=== PATIENT | female | born 1965 | race Hispanic/Latino ===

== ENCOUNTER 2017-07-19 18:38 | Emergency (ER) | payer BC ==
[2017-07-19 18:56] VITALS: O2SAT 98; BMI 32.3
--- NOTE | 2017-07-19 19:23 | ED PDOC ---
Arrival/HPI - General Chief Complaint: Abnormal Skin Integrity Time Seen by Provider: 07/19/17 19:15 Historian: Patient EM Caveat: Acuity of Condition - History of Present Illness Narrative History of Present Illness (Text): 07/19/17 19:19 Pt is a 51 yr old female who presents with a 1.5 cm laceration to her left jeff aspect of the second PIP jt pad approximately one hour ago. Pt says she was cutting an avocado when the knife slipped and cut her hand cleanly. When she ran her hand under running cold water, she felt a sharp increase in pain and knew that it was a deep cut. denies loss of sensation or motor function to the left hand. Last tetanus booster greater than 10 yrs ago. Time/Duration: Prior to Arrival Symptom Onset: Sudden Symptom Course: Unchanged Quality: Aching Severity Level: 5, 7 Activities at Onset: Rest Context: Work Past Medical History - Provider Review Nursing Documentation Reviewed: Yes - Travel History Have you recently traveled outside [place] w/in the past 3 mons?: No - Cardiac Hx Cardiac Disorders: No - Pulmonary Hx Respiratory Disorders: No - Neurological Hx Neurological Disorder: Yes Hx Headaches: Yes - HEENT Hx HEENT Disorder: No - Renal Hx Renal Disorder: No - Endocrine/Metabolic Hx Endocrine Disorders: Yes Hx Hypothyroidism: Yes Hx Systemic Lupus Erythematosus: Yes - Hematological/Oncological Hx Blood Disorders: Yes - Integumentary Hx Dermatological Disorder: Yes Other/Comment: rosea - Musculoskeletal/Rheumatological Hx Musculoskeletal Disorders: No - Gastrointestinal Hx Gastrointestinal Disorders: No - Genitourinary/Gynecological Hx Genitourinary Disorders: No - Psychiatric Hx Psychophysiologic Disorder: Yes Hx Depression: Yes Hx Substance Use: No - Surgical History Hx Section: Yes - Anesthesia Hx Anesthesia: Yes Hx Anesthesia Reactions: No Hx Malignant Hyperthermia: No Family/Social History - Physician Review Nursing Documentation Reviewed: Yes Family/Social History: Unknown Family HX Smoking Status: socially Hx Alcohol Use: Yes Frequency of alcohol use: Socially Hx Substance Use: No Allergies/Home Meds Allergies/Adverse Reactions: Allergies Penicillins Allergy (Verified 07/19/17 18:56) RASH Home Medications: Home Meds Medication Instructions Recorded Confirmed Levothyroxine [Synthroid] 200 mcg PO DAILY 07/19/17 07/19/17 Paroxetine HCl [Paxil] 20 mg PO DAILY 07/19/17 07/19/17 Pediatric Multivit No.153/D3/K 1 tab PO DAILY 07/19/17 07/19/17 [Abdek Multivitamin Chew Tab] Review of Systems - Review of Systems Constitutional: Normal Eyes: Normal ENT: Normal Respiratory: Normal Cardiovascular: Normal Gastrointestinal: Normal Genitourinary Female: Normal Musculoskeletal: Normal Skin: Laceration (left hand on the palm ) Neurological: Normal Endocrine: Normal Hemo/Lymphatic: Normal Psychiatric: Normal Physical Exam Vital Signs Reviewed: Yes Vital Signs Temp Pulse Resp BP Pulse Ox 07/19/17 21:05 98 F 75 18 135/72 98 07/19/17 18:48 98.9 F 86 17 139/82 98 Temperature: Afebrile Blood Pressure: Normal Pulse: Regular Respiratory Rate: Normal Appearance: Positive for: Well-Appearing, Non-Toxic, Comfortable Pain Distress: None Mental Status: Positive for: Alert and Oriented X 3 - Systems Exam Head: Present: Atraumatic, Normocephalic Pupils: Present: PERRL Extroacular Muscles: Present: EOMI Conjunctiva: Present: Normal Mouth: Present: Moist Mucous Membranes Neck: Present: Normal Range of Motion Respiratory/Chest: Present: Clear to Auscultation, Good Air Exchange. No: Respiratory Distress, Accessory Muscle Use Cardiovascular: Present: Regular Rate and Rhythm, Normal S1, S2. No: Murmurs Abdomen: No: Tenderness, Distention, Peritoneal Signs Back: Present: Normal Inspection Upper Extremity: Present: Normal Inspection, Normal ROM, NORMAL PULSES, Neurovascularly Intact. No: Cyanosis, Edema Lower Extremity: Present: Normal Inspection. No: Edema Neurological: Present: GCS=15, CN II-XII Intact, Speech Normal, Motor Func Grossly Intact, Normal Sensory Function, Normal Cerebellar Funct Skin: Present: Warm, Dry, Normal Color, Laceration (Left jeff aspect over the 2nd PIP jt, approx 1.5 cm in length). No: Rashes Psychiatric: Present: Alert, Oriented x 3, Normal Insight, Normal Concentration Medical Decision Making ED Course and Treatment: 07/19/17 19:25 Impression Pt is a 51 yr old female who presents with a 1.5 cm laceration to her left jeff aspect of the second PIP jt pad approximately one hour ago. Plan Order Tetanus booster lac repair Progress note Wound was irrigated well, infiltrated with lidocaine 1% Laceration repair using 5.0 Nylon x 2 sutures Pt tolerated the procedure well and was instructed to keep wound clean and dry Return to have sutures removed in 7-10 days tetanus booster given 07/19/17 20:39 - Medication Orders Current Medication Orders: Discontinued Medications Tetanus/Reduced Diphtheria/Acell Pertussis (Boostrix Vaccine Inj) 0.5 ml IM .ONCE ONE Stop: 07/19/17 19:27 Last Admin: 07/19/17 20:58 Dose: 0.5 ml Immunization Registry Document 07/19/17 20:58 [place] (Rec: 07/19/17 20:58 [place] [id number]) Immunization Registry Consent Date 07/19/17 - Procedure PROCEDURE NOTE (Text): Performed by the emergency provider Location: Left jeff surface of the 2nd PIP jt Length: 1.5 cm Description: "clean wound edges","no foreign bodies" Distal CMS: ~Normal.~ No deficits.~ Neurovascularly intact. Anesthesia: Lidocaine 1% 4cc Preparation: The wound was cleaned with NS and Betadyne. The area was prepped and draped in the usual sterile fashion.~ Exploration: ~ The wound was explored and no foreign bodies were found. Procedure: The wound was closed with 5.0 nylon.~ There was excellent approximation.~ In total, 2 sutures were used. Post-Procedure: ~Good closure and hemostasis.~ The patient tolerated the procedure well and there were no complications.~ CSM remains intact.~ Post procedure dressing applied. Disposition/Present on Arrival - Present on Arrival Any Indicators Present on Arrival: Yes History of DVT/PE: No History of Uncontrolled Diabetes: No Urinary Catheter: No History of Decub. Ulcer: No History Surgical Site Infection Following: None - Disposition Have Diagnosis and Disposition been Completed?: Yes Diagnosis: Laceration Disposition: HOME/ ROUTINE Disposition Time: 20:42 Patient Plan: Discharge Condition: STABLE Discharge Instructions (ExitCare): Laceration Repair, Wound Care (DC), Laceration Repair With Stitches (DC) Additional Instructions: Brittney thank you for letting us take care of you today. Your provider was ASCENCION Amin. You were treated for Laceration of the Left hand. The emergency medical care you received today was directed at your acute symptoms. If you were prescribed any medication, please fill it and take as directed. It may take several days for your symptoms to resolve. Return to the Emergency Department if your symptoms worsen, do not improve, or if you have any other problems. Please have the sutures removed in 7-10 days Take ibuprofen for pain relief and keep the wound clean Please contact your doctor or call one of the physicians/clinics you have been referred to that are listed on the Patient Visit Information form that is included in your discharge packet. Bring any paperwork you were given at discharge with you along with any medications you are taking to your follow up visit. Our treatment cannot replace ongoing medical care by a primary care provider (PCP) outside of the emergency department. Thank you for allowing the [facility] team to be part of your care today. Referrals: PCP,NO [Non-Staff] - Follow up with primary Forms: [employer] (Persian), WORK NOTE
[2017-07-19] MEDS ORDERED: TDAP Vaccine 0.5 mL Syr IM ONE (19:26)
[2017-07-19 21:45] VITALS: BP 135/72; PULSE 75; RESP 18
[2017-07-19 21:46] VITALS: TEMP 98
== END 2017-07-19 21:05 | disposition home or self-care (01) ==
LOC: ED 18:38
DX: S61.412A Laceration without foreign body of left hand, initial encounter (principal); W26.0XXA Contact with knife, initial encounter; Y99.0 Civilian activity done for income or pay; E03.9 Hypothyroidism, unspecified; M32.9 Systemic lupus erythematosus, unspecified